=== PATIENT | male | born 1965 | race African-American/Black ===

== ENCOUNTER → 2016-09-10 | Emergency (ER) | payer MEDICAID ==
[~2016-09-10] MED LIST: ACETAMINOPHEN 325 MG TAB PO PRN; ALU/MAG/SIM 30 ML UDC PO PRN; ASPIRIN 81 MG CHEW TAB ONE; ASPIRIN 81 MG CHEW TAB PO SCH; DOCUSATE SOD 100 MG CAP PO PRN; ENOXAPARIN 100 MG/ML MDV SUBQ SCH; ENOXAPARIN 100 MG/ML SYR SUBQ ONE; LORAZEPAM 0.5 MG TAB PO PRN; MORPHINE 2 MG/ML SYR IV PRN; NITROGLYCERIN SL 0.4 MG TAB SL PRN; ONDANSETRON 4 MG VIAL IV PRN; OPTIRAY 350 100 ML VIAL HMH IV ONE; PHARMACY TO DOSE SUBQ ONE; PHARMACY TO DOSE SUBQ STA; SALINE FLUSH 10 ML FLUSH PRN; SALINE FLUSH 10 ML FLUSH SCH; SODIUM CHLORIDE 0.9% FLUSH BAG 500 ML IV SCH; TEMAZEPAM 15 MG CAP PO PRN; TEMAZEPAM 7.5 MG CAP PO PRN; TRAMADOL 50 MG TAB PO PRN
== END ==
LOC: ENRESERVTM → CANRESERV → ENRESERVDT → ER 10:39 → UNDOADMOB 16:23 → EMR 16:23
DX: R07.9 Chest pain, unspecified (principal); Z79.899 Other long term (current) drug therapy; Z79.01 Long term (current) use of anticoagulants; F17.210 Nicotine dependence, cigarettes, uncomplicated; F41.1 Generalized anxiety disorder; I10 Essential (primary) hypertension; Z86.718 Personal history of other venous thrombosis and embolism; E11.9 Type 2 diabetes mellitus without complications; Z86.711 Personal history of pulmonary embolism; I25.10 Atherosclerotic heart disease of native coronary artery without angina pectoris; I25.2 Old myocardial infarction; Z95.1 Presence of aortocoronary bypass graft; Z95.5 Presence of coronary angioplasty implant and graft
CPT/HCPCS: 36415; 71010; 71260; 80053; 82550; 83735; 84484; 85025; 85610; 85730; 93005; 96372

== ENCOUNTER 2016-09-21 02:43 | Observation (INO) | payer MEDICAID ==
[~2016-09-21] VITALS: Ht 180.3 cm; Wt 83.1 kg
[2016-09-21] VITALS (7 sets, daily range): BP systolic 117–138; RESP 18–20; TEMP 97.8–98.1; Ht 180.3 cm; Wt 83.1 kg
[2016-09-21] MEDS ORDERED: ASPIRIN 81 MG CHEW TAB ONE (03:31)
[2016-09-21] MEDS ORDERED: ENOXAPARIN 80 MG/0.8 ML SYR SUBQ ONE (05:11)
[2016-09-21] MEDS ORDERED: ENOXAPARIN 100 MG/ML SYR SUBQ ONE (05:11)
[2016-09-21] MEDS ORDERED: NITROGLYCERIN 50 MG/250 ML IV PRN (11:15)
[2016-09-21] MEDS ORDERED: SODIUM CHLORIDE 0.9% 1,000 ML IV SCH (11:15)
[2016-09-21] MEDS ORDERED: DOCUSATE SOD 100 MG CAP PO PRN (11:15)
[2016-09-21] MEDS ORDERED: LORAZEPAM 0.5 MG TAB PO PRN (11:15)
[2016-09-21] MEDS ORDERED: MORPHINE 2 MG/ML SYR IV PRN (11:15)
[2016-09-21] MEDS ORDERED: TRAMADOL 50 MG TAB PO PRN (11:15)
[2016-09-21] MEDS ORDERED: SALINE FLUSH 10 ML FLUSH PRN (11:15)
[2016-09-21] MEDS ORDERED: SODIUM CHLORIDE 0.9% FLUSH BAG 500 ML IV PRN (11:15)
[2016-09-21] MEDS ORDERED: ONDANSETRON 4 MG VIAL IV PRN (11:15)
[2016-09-21] MEDS ORDERED: TEMAZEPAM 15 MG CAP PO PRN (11:15)
[2016-09-21] MEDS ORDERED: ACETAMINOPHEN 325 MG TAB PO PRN (11:20)
[2016-09-21] MEDS ORDERED: ENOXAPARIN 80 MG/0.8 ML SYR SUBQ SCH (12:00)
[2016-09-21] MEDS: NITROGLYCERIN SL 0.4 MG TAB SL PRN ×2 (12:22→12:40)
[2016-09-21] MEDS ORDERED: amLODIPine 10 MG TAB PO SCH (13:05)
[2016-09-21] MEDS ORDERED: AMIODARONE 200 MG TAB PO SCH (13:05)
[2016-09-21] MEDS ORDERED: PRAVASTATIN 40 MG TAB PO SCH (13:05)
[2016-09-21] MEDS ORDERED: GABAPENTIN 600 MG TAB PO SCH (16:00)
[2016-09-21] MEDS ORDERED: SALINE FLUSH 10 ML FLUSH SCH (20:00)
[2016-09-22] MEDS ORDERED: ASPIRIN EC 81 MG TAB PO SCH (08:00)
== END 2016-09-21 14:43 | disposition home or self-care (01) ==
LOC: ENRESERVDT → ENRESERVTM → ER 02:43 → EMR 04:32 → ENPENDDIS 04:32 → PCU 06:46
PROVIDERS: ADMIT Internal Medicine; ATTEND Internal Medicine
DX: R07.9 Chest pain, unspecified (principal); I10 Essential (primary) hypertension; E11.9 Type 2 diabetes mellitus without complications; I25.10 Atherosclerotic heart disease of native coronary artery without angina pectoris; Z95.1 Presence of aortocoronary bypass graft; Z95.5 Presence of coronary angioplasty implant and graft; Z79.01 Long term (current) use of anticoagulants; Z86.711 Personal history of pulmonary embolism; Z86.718 Personal history of other venous thrombosis and embolism; M54.5 Low back pain
CPT/HCPCS: 36415; 71010; 80053; 82550; 83735; 84484; 85025; 85610; 85730; 93005; 94799